=== PATIENT | female | born 1945 | race Caucasian/White ===

== ENCOUNTER 2018-06-08 12:11 | Emergency (ER) | payer MEDICARE, MEDICAID ==
[2018-06-08 12:30] VITALS: BP 172/74
--- NOTE | 2018-06-08 12:37 | UC ---
Skin Complaint HPI - HPI Summary HPI Summary: 73 yo female presents with lesion to right anterior chest. She tells me that from time to time she gets "black spots" on her chest and she will squeeze and pop these and they will go away. About 3 weeks ago she popped one on the right side of her chest and since that time has had a hardened red area that is draining daily. She has been applying peroxide and keeping the area covered. She is diabetic. Denies fever or hx of MRSA. - History of Current Complaint Chief Complaint: UCSkin Time Seen by Provider: 06/08/18 12:37 Stated Complaint: SKIN ISSUE Hx Obtained From: Patient Onset/Duration: Gradual Onset Current Severity: None Pain Intensity: 0 - Allergy/Home Medications Allergies/Adverse Reactions: Allergies Allergy/AdvReac Type Severity Reaction Status Date / Time No Known Allergies Allergy Verified 06/08/18 12:30 Home Medications: Home Medications Aspirin [Aspirin Childrens 81 MG] 81 mg PO BID 06/08/18 [History Confirmed 06/08] Losartan TAB* [Cozaar TAB*] 25 mg PO DAILY 06/08/18 [History Confirmed 06/08/18] Propranolol/Hydrochlorothiazid [Propranolol-Hctz 40-25 mg Tab] 40 mg PO DAILY [History Confirmed 06/08/18] metFORMIN* [Glucophage 500 MG TAB *] 500 mg PO BID 06/08/18 [History Confirmed 06/08/18] PMH/Surg Hx/FS Hx/Imm Hx Endocrine History: Diabetes Cardiovascular History: Hypertension - Surgical History Surgical History: Yes Surgery Procedure, Year, and Place: gallbladder 2005 - Social History Lives: With Family Alcohol Use: None Substance Use Type: None Smoking Status (MU): Never Smoked Tobacco Review of Systems All Other Systems Reviewed And Are Negative: Yes Constitutional: Positive: Negative Skin: Positive: Other - Lesion right anterior chest Respiratory: Positive: Negative Cardiovascular: Positive: Negative Neurovascular: Positive: Negative Neurological: Positive: Negative Psychological: Positive: Negative Physical Exam - Summary Physical Exam Summary: GENERAL: NAD. WDWN. No pain distress. SKIN: RIGHT anterior chest wall with 1.0cm diameter raised abscess with scant active drainage. Mildly TTP. No surrounding erythema, induration, edema, or streaking. NECK: No lymphadenopathy. CHEST: No accessory muscle use. Breathing comfortably and in no distress. CV: Pulses intact. Cap refill <2seconds NEURO: Alert. PSYCH: Age appropriate behavior. Triage Information Reviewed: Yes Vital Signs: Initial Vital Signs Temp 97.2 F 06/08/18 12:23 Pulse 76 06/08/18 12:23 Resp 16 06/08/18 12:23 BP 172/74 06/08/18 12:23 Pulse Ox 99 06/08/18 12:23 Vital Signs Reviewed: Yes Course/Dx - Course Course Of Treatment: Mild purulent material mixed with serosanguinous fluid was expressed. A culture was obtained and will be sent. Given the non-healing nature of the wound there is a suspicion of MRSA, therefore will cover her with Bactrim. Band-aid applied today and advised to keep covered until well healed. - Diagnoses Provider Diagnosis: Abscess of chest wall Discharge - Sign-Out/Discharge Documenting (check all that apply): Patient Departure All imaging exams completed and their final reports reviewed: No Studies - Discharge Plan Condition: Stable Disposition: HOME Prescriptions: Sulfamethox/Trimethoprim DS* [Bactrim DS 800/160 TAB*] 1 tab PO BID #14 tab Patient Education Materials: Abscess (ED) Referrals: Monse Guido MD [Primary Care Provider] - Additional Instructions: If you develop a fever, shortness of breath, chest pain, new or worsening symptoms - please call your PCP or go to the ED. Your blood pressure was high at todays visit. Please see your primary provider within 4 weeks for recheck and re-evaluation. Keep the area covered until well healed. - Billing Disposition and Condition Condition: STABLE Disposition: Home
== END 2018-06-08 12:56 | disposition home or self-care (01) ==
LOC: UCEAST 12:11
DX: L02.213 Cutaneous abscess of chest wall (principal); E11.9 Type 2 diabetes mellitus without complications; Z79.84 Long term (current) use of oral hypoglycemic drugs; I10 Essential (primary) hypertension
CPT/HCPCS: 87070; 87076; 87205; 87640; 87641; 99211; G0463

== ENCOUNTER 2021-06-28 15:11 | Inpatient (IN) ==
[2021-06-28 16:37] LABS: Venous Bicarbonate HCO3 21.7 mmol/L (24-28)
[2021-06-28 16:39] LABS: ABS Lymphocytes 0.8 10^3/ul (1.0-4.8); ABS Monocytes 0.3 10^3/ul (0-0.8); ABS Neutrophils 2.4 10^3/ul (1.5-7.7); Hematocrit 36 % (35-47); Lymphocyte % 22.1 %; Mean Corpuscular HGB Conc 33 g/dL (31-36); Mean Corpuscular Hemoglobin 29 pg (27-31); Mean Corpuscular Volume 88 fL (80-97); Mean Platelet Volume 8.8 fL (7.4-10.4); Nucleated Red Blood Cells % 0.1; Platelet Count 131 10^3/uL (150-450); Red Blood Count 4.15 10^6 /uL (3.70-4.87); Red Cell Distribution Width 14 % (10-15); White Blood Count 3.5 10^3/uL (3.5-10.8)
[2021-06-28 16:55] LABS: Albumin 3.7 g/dL (3.2-5.2); Albumin/Globulin Ratio 1.1 (1-3); C Reactive Protein 110.53 mg/L (<8.01); Calcium 8.4 mg/dL (8.6-10.3); Globulin 3.3 g/dL (2-4); Potassium 4.7 mmol/L (3.5-5.0); Total Bilirubin 0.4 mg/dL (0.2-1.0); eGFR CKD-EPI 45.2 (>60)
[2021-06-28] MEDS ORDERED: Lactated Ringers 1000 ml BAG 1,000 ML IV ONE (16:59)
[2021-06-28] MEDS ORDERED: SOTROVIMAB 500 MG VIAL 500 MG in NS 0.9% 100 ml BAG 100 ML IV ONE (17:29)
[2021-06-28] MEDS ORDERED: Insulin ISOPH/REG 70/30 SUBCUT ONE (17:33)
[2021-06-28] MEDS ORDERED: NS 0.9% 50 ML 50 ML IV ONE (18:00)
[2021-06-28] MEDS ORDERED: Dextrose 50% Syringe 50 ml 25 GM/50 ML SYRINGE IV PUSH PRN ×2 (19:42→22:59)
[2021-06-29] MEDS: Enoxaparin 40 MG/0.4 ML SYR SUBCUT SCH ×2 (01:14→19:47)
[2021-06-29 14:29] LABS: Magnesium 1.9 mg/dL (1.9-2.7)
[2021-06-30 07:23] LABS: ABS Lymphocytes 1.5 10^3/ul (1.0-4.8); ABS Monocytes 0.3 10^3/ul (0-0.8); Hematocrit 35 % (35-47); Hemoglobin 11.7 g/dL (12.0-16.0); Lymphocyte % 40.1 %; Mean Corpuscular HGB Conc 33 g/dL (31-36); Mean Corpuscular Hemoglobin 29 pg (27-31); Mean Corpuscular Volume 87 fL (80-97); Mean Platelet Volume 8.5 fL (7.4-10.4); Nucleated Red Blood Cells % 0.1; Platelet Count 155 10^3/uL (150-450); Red Blood Count 4.03 10^6 /uL (3.70-4.87); Red Cell Distribution Width 14 % (10-15); White Blood Count 3.8 10^3/uL (3.5-10.8)
[2021-06-30 07:40] LABS: C Reactive Protein 167.62 mg/L (<8.01); Calcium 8.3 mg/dL (8.6-10.3); Magnesium 1.8 mg/dL (1.9-2.7); Potassium 3.6 mmol/L (3.5-5.0)
[2021-06-30 09:08] LABS: Urine Appearance Cloudy; Urine Bilirubin Negative (Negative); Urine Blood Negative (Negative); Urine Color Yellow; Urine Glucose Negative (Negative); Urine Ketones Trace (Negative); Urine Nitrite Negative (Negative); Urine Protein 2+(100 mg/dL) (Negative); Urine Specific Gravity 1.017 (1.002-1.030); Urine Urobilinogen Negative (Negative)
[2021-06-30 09:11] LABS: Urine Bacteria Absent (Absent); Urine Red Blood Cell 2+(6-10/hpf) (Absent); Urine Squamous Epithelial Cell Present (Absent); Urine White Blood Cell 3+(>20/hpf) (Absent)
[2021-06-30] MEDS: Enoxaparin 40 MG/0.4 ML SYR SUBCUT SCH (21:16)
[2021-07-01 11:27] VITALS: BP 145/70
== END 2021-07-01 13:45 | disposition home or self-care (01) | DRG 177 ==
LOC: ED 15:11 → EDHOLD 22:55 → SUATTDRO 22:55 → MED 06-29 10:21
PROVIDERS: ADMIT Internal Medicine; ATTEND Internal Medicine

== ENCOUNTER 2021-07-21 14:03 | Observation (INO) ==
[2021-07-21 15:06] LABS: ABS Basophils 0.1 10^3/ul (0-0.2); ABS Eosinophils 0.2 10^3/ul (0-0.6); ABS Lymphocytes 1.3 10^3/ul (1.0-4.8); ABS Monocytes 0.4 10^3/ul (0-0.8); ABS Neutrophils 3.6 10^3/ul (1.5-7.7); Eosinophil % 3.7 %; Hematocrit 40 % (35-47); Hemoglobin 13.2 g/dL (12.0-16.0); Lymphocyte % 23.6 %; Mean Corpuscular HGB Conc 33 g/dL (31-36); Mean Corpuscular Hemoglobin 30 pg (27-31); Mean Corpuscular Volume 91 fL (80-97); Mean Platelet Volume 8.6 fL (7.4-10.4); Nucleated Red Blood Cells % 0.1; Platelet Count 286 10^3/uL (150-450); Red Blood Count 4.38 10^6 /uL (3.70-4.87); Red Cell Distribution Width 15 % (10-15); White Blood Count 5.6 10^3/uL (3.5-10.8)
[2021-07-21 15:12] LABS: INR 0.92 (0.86-1.15)
[2021-07-21 15:57] LABS: Albumin 3.8 g/dL (3.2-5.2); Albumin/Globulin Ratio 1.1 (1-3); Calcium 9.6 mg/dL (8.6-10.3); Globulin 3.5 g/dL (2-4); Potassium 4.5 mmol/L (3.5-5.0); Total Bilirubin 0.5 mg/dL (0.2-1.0); Total Protein 7.3 g/dL (6.4-8.9); eGFR CKD-EPI 62.1 (>60)
[2021-07-21 17:10] LABS: Troponin I 0.01 ng/mL (<0.03)
[2021-07-21] MEDS ORDERED: Iodixanol (CONTRAST) 320 MG/ML 100 ML SDV IV ONE (17:55)
[2021-07-21] MEDS ORDERED: Ondansetron 4 mg VIAL 2 MG/ML 2 ml VIAL IV PRN (21:15)
[2021-07-21] MEDS ORDERED: Dextrose 50% Syringe 50 ml 25 GM/50 ML SYRINGE IV PUSH PRN (21:20)
[2021-07-22] MEDS ORDERED: Insulin GLARGINE 100 un/ml 10 ml VIAL SUBCUT SCH (09:00)
[2021-07-22] MEDS ORDERED: Senna TAB 8.6 mg TAB PO PRN (09:39)
[2021-07-22] MEDS ORDERED: Polyethylene Glycol 3350 17 GM PACKET PO PRN (09:39)
[2021-07-22] MEDS ORDERED: Magnesium Hydroxide LIQ 30 ML UDC PO PRN (09:39)
[2021-07-22 11:26] VITALS: BP 119/59
[2021-07-22] MEDS ORDERED: Magnesium CITRATE LIQ 300 ML BTL PO ONE (11:45)
[2021-07-22] MEDS ORDERED: Magnesium Hydroxide LIQ 30 ML UDC PO SCH (21:00)
== END 2021-07-22 13:10 | disposition home or self-care (01) ==
LOC: EDHOLD 14:03 → ED 14:03 → SUATTDRO 21:15 → MED 22:38
PROVIDERS: ADMIT Student in an Organized Health Care Education/Training Program; ATTEND Internal Medicine